=== PATIENT | male | born 1950 | race Caucasian/White ===

== ENCOUNTER 2021-03-13 12:23 | Inpatient (IN) | payer MEDICARE, OTHER ==
[~2021-03-13] VITALS: Ht 180.3 cm; Wt 105.9 kg
[2021-03-13 16:22] LABS: BASO # 0.1 x10^3/uL (0.0-0.2); BASO % 1 % (0-3); EOS % 0 % (0-3); HEMATOCRIT 36.8 % (39.0-53.0); LYMPH # 1.1 x10^3/uL (1.0-4.8); LYMPH % 8 % (24-48); MEAN CORPUSCULAR HEMOGLOBIN 30 pg (25-35); MEAN CORPUSCULAR HGB CONC 35 g/dL (31-37); MEAN CORPUSCULAR VOLUME 84 fL (79-100); MONO # 0.5 x10^3/uL (0.0-1.1); MONO % 3 % (0-9); NEUT # 11.6 x10^3/uL (1.8-7.7); NEUT % 87 % (31-73); PLATELET COUNT 179 x10^3/uL (140-400); RED BLOOD COUNT 4.41 x10^6/uL (4.30-5.70); RED CELL DISTRIBUTION WIDTH 13.2 % (11.5-14.5); WHITE BLOOD COUNT 13.3 x10^3/uL (4.0-11.0)
[2021-03-13 16:33] LABS: CALCIUM 8.5 mg/dL (8.5-10.1); CREATININE 1.7 mg/dL (0.7-1.3); GFR 40.2; POTASSIUM 3.5 mmol/L (3.5-5.1)
[2021-03-13 16:38] LABS: ALBUMIN 2.8 g/dL (3.4-5.0); ALBUMIN/GLOBULIN RATIO 0.7 (1.0-1.7); MAGNESIUM 2.1 mg/dL (1.8-2.4); TOTAL BILIRUBIN 0.8 mg/dL (0.2-1.0); TOTAL PROTEIN 6.8 g/dL (6.4-8.2)
[2021-03-13 17:00] LABS: % BANDS 19 % (0-9); % BASOS 1 % (0-3); % LYMPHS 5 % (24-48); % MONOS 3 % (0-10); % SEGS 72 % (35-66); PLT ESTIMATE ADEQUATE (ADEQUATE)
[2021-03-13 17:56] LABS: BASE EXCESS COOX 1 mmol/L (-3-3); HCO3 COOX 23 mmol/L (21-28); METHEMOGLOBIN 0.4 % (0.0-1.9); OXYHEMOGLOBIN 91.3 %; PCO2 COOX 27 mmHg (35-46); PO2 COOX 58 mmHg (65-108); SAT O2 COOX 92 % (92-99)
[2021-03-13] MEDS ORDERED: DEXAMETHASONE SOD PHOS 4 MG/ML VIAL IVP ONE (18:15)
[2021-03-13] MEDS ORDERED: IBUPROFEN 400 MG TABLET. PO ONE (18:45)
[2021-03-13] MEDS ORDERED: ACETAMINOPHEN 500 MG TABLET PO ONE (18:45)
--- NOTE | 2021-03-13 18:55 | RAD ---
Chest AP portable at 1802: Reason for examination: Patient under investigation for Covid. Short of breath. Heart size is upper normal. Mediastinum is unremarkable. Lung yeh show mild hazy opacities in the left upper and lower lung yeh and at the mid right lung field along the minor fissure and in the m edial right lung base. No pleural effusions or pneumothorax are seen. No acute bony abnormalities are present. IMPRESSION: Mild hazy opacities bilaterally. Cannot exclude atypical pneumonia. Electronically signed by: Lesley Bishop MD (03/13/2021 6:53 PM) RETA
--- NOTE | 2021-03-13 19:18 | ED.ADGEN ---
Past Medical History Additional Past Medical Histor: SLEEP APNEA WITH C-PAP USE Past Surgical History: Other Additional Past Surgical Histo: CARDIAC ABALTION Smoking Status: Never Smoker Alcohol Use: Rarely General Adult EDM: Chief Complaint: FEVER HPI: HPI: Patient is a 70 year old male who presents emergency with reports of feeling unwell with fevers, chills, decreased appetite, difficulty sleeping, diarrhea, cough, and congestion. Patient reports that his son tested positive for Covid about 2 weeks ago, his had it last week. Patient states he thinks that he has Covid now. He has not been immunized against the illness. Patient denies any nausea, or vomiting. He denies any blood in his stools, but states that today he did have a couple of stools that were black in color. He denies any abdominal pain, chest pain, palpitations, or wheezing. Patient denies any chest pain palpitations at this time, he states he does have a history of A. fib and high blood pressure. Patient also reports CPAP use when sleeping due to sleep apnea. He currently rates his discomfort a 5 out of 10 on the pain scale, he denies any alleviating factors. Review of Systems: Review of Systems: Complete ROS is negative unless otherwise noted in HPI. Current Medications: Current Medications Medications (Trade) Dose Ordered Sig/[facility] Start Time Stop Time Status Last Admin Dose Admin Acetaminophen (Tylenol) 1,000 mg 1X ONCE 03/13/21 18:45 03/13/21 18:46 DC 03/13/21 18:55 1,000 MG Dexamethasone Sodium Phosphate (Decadron) 6 mg 1X ONCE 03/13/21 18:15 03/13/21 18:45 DC 03/13/21 18:59 6 MG Ibuprofen (Motrin) 800 mg 1X ONCE 03/13/21 18:45 03/13/21 18:46 DC 03/13/21 18:55 800 MG Allergies: Allergies: Allergies Coded Allergies Type Severity Reaction Last Updated Verified amoxicillin Allergy Intermediate 03/13/21 Yes clavulanic acid Allergy Intermediate 03/13/21 Yes Physical Exam: PE: See Above Constitutional: Well developed, well nourished, no acute distress, non-toxic appearance. [] HENT: Normocephalic, atraumatic, bilateral external ears normal, oropharynx moist, no oral exudates, nose normal. [] Eyes: PERRLA, EOMI, conjunctiva normal, no discharge. [] Neck: Normal range of motion, no tenderness, supple, no stridor. [] Cardiovascular:Heart rate regular rhythm, no murmur [] Lungs & Thorax: Bilateral breath sounds clear to auscultation [] Abdomen: Bowel sounds normal, soft, no tenderness, no masses, no pulsatile masses. [] Skin: Warm, dry, no erythema, no rash. [] Back: No tenderness, no CVA tenderness. [] Extremities: No tenderness, no cyanosis, no clubbing, ROM intact, no edema. [] Neurologic: Alert and oriented X 3, normal motor function, normal sensory function, no focal deficits noted. [] Psychologic: Affect normal, judgement normal, mood normal. [] Current Patient Data: Labs: Laboratory Tests Test 03/13/21 14:21 03/13/21 15:49 03/13/21 16:16 SARS-CoV-2 Antigen (Rapid) Negative (NEGATIVE) O2 Saturation 92 % (92-99) Arterial Blood pH 7.53 (7.35-7.45) H Arterial Blood pCO2 at Patient Temp 27 mmHg (35-46) L Arterial Blood pO2 at Patient Temp 58 mmHg (65-108) L Arterial Blood HCO3 23 mmol/L (21-28) Arterial Blood Base Excess 1 mmol/L (-3-3) Oxyhemoglobin 91.3 % Methemoglobin 0.4 % (0.0-1.9) Carbon Monoxide, Quantitative 0.3 % (0.0-1.9) FiO2 21/ra White Blood Count 13.3 x10^3/uL (4.0-11.0) H Red Blood Count 4.41 x10^6/uL (4.30-5.70) Hemoglobin 13.0 g/dL (13.0-17.5) Hematocrit 36.8 % (39.0-53.0) L Mean Corpuscular Volume 84 fL (79-100) Mean Corpuscular Hemoglobin 30 pg (25-35) Mean Corpuscular Hemoglobin Concent 35 g/dL (31-37) Red Cell Distribution Width 13.2 % (11.5-14.5) Platelet Count 179 x10^3/uL (140-400) Neutrophils (%) (Auto) 87 % (31-73) H Lymphocytes (%) (Auto) 8 % (24-48) L Monocytes (%) (Auto) 3 % (0-9) Eosinophils (%) (Auto) 0 % (0-3) Basophils (%) (Auto) 1 % (0-3) Neutrophils # (Auto) 11.6 x10^3/uL (1.8-7.7) H Lymphocytes # (Auto) 1.1 x10^3/uL (1.0-4.8) Monocytes # (Auto) 0.5 x10^3/uL (0.0-1.1) Eosinophils # (Auto) 0.0 x10^3/uL (0.0-0.7) Basophils # (Auto) 0.1 x10^3/uL (0.0-0.2) Segmented Neutrophils % 72 % (35-66) H Band Neutrophils % 19 % (0-9) H Lymphocytes % 5 % (24-48) L Monocytes % 3 % (0-10) Basophils % 1 % (0-3) Dohle Bodies Few Platelet Estimate Adequate (ADEQUATE) Sodium Level 128 mmol/L (136-145) L Potassium Level 3.5 mmol/L (3.5-5.1) Chloride Level 95 mmol/L (98-107) L Carbon Dioxide Level 23 mmol/L (21-32) Anion Gap 10 (6-14) Blood Urea Nitrogen 27 mg/dL (8-26) H Creatinine 1.7 mg/dL (0.7-1.3) H Estimated GFR (Cockcroft-Gault) 40.2 BUN/Creatinine Ratio 16 (6-20) Glucose Level 134 mg/dL (70-99) H Calcium Level 8.5 mg/dL (8.5-10.1) Magnesium Level 2.1 mg/dL (1.8-2.4) Total Bilirubin 0.8 mg/dL (0.2-1.0) Aspartate Amino Transferase (AST) 53 U/L (15-37) H Alanine Aminotransferase (ALT) 44 U/L (16-63) Alkaline Phosphatase 52 U/L (46-116) Total Protein 6.8 g/dL (6.4-8.2) Albumin 2.8 g/dL (3.4-5.0) L Albumin/Globulin Ratio 0.7 (1.0-1.7) L Laboratory Tests 03/13/21 16:16 Laboratory Tests 03/13/21 16:16 Vital Signs: Vital Signs Date Time Temp Pulse Resp B/P (MAP) Pulse Ox O2 Delivery O2 Flow Rate FiO2 03/13/21 18:35 102.8 102.8 03/13/21 17:25 73 22 96/52 (67) 91 Room Air 03/13/21 16:25 2.0 EKG: EKG: [] Heart Score: C/O Chest Pain: No Radiology/Procedures: Radiology/Procedures: PROCEDURE: CHEST AP ONLY Chest AP portable at 1802: Reason for examination: Patient under investigation for Covid. Short of breath. Heart size is upper normal. Mediastinum is unremarkable. Lung yeh show mild hazy opacities in the left upper and lower lung yeh and at the mid right lung field along the minor fissure and in the medial right lung base. No pleural effusions or pneumothorax are seen. No acute bony abnormalities are present. IMPRESSION: Mild hazy opacities bilaterally. Cannot exclude atypical pneumonia. Electronically signed by: Lesley Bishop MD (03/13/2021 6:53 PM) TEGAN [] Course & Med Decision Making: Course & Med Decision Making Pertinent Labs and Imaging studies reviewed. (See chart for details) [id number]-spoke with Dr. Diaz who is the admitting physician, and care was assumed following discussion of patient. Will admit patient for PUI, respiratory failure with hypoxia, fever, acute kidney injury, and atypical pneumonia Patient's vital signs stable. patient appears ill, respirations even and unlabored. Patient will be admitted to the medical tele floor. Patient's case and plan of care also discussed with Dr. Xander Carpenter Disclaimer: Pauline Disclaimer: This electronic medical record was generated, in whole or in part, using a voice recognition dictation system. Departure Departure Impression: Primary Impression: Person under investigation for COVID-19 Additional Impressions: Respiratory failure with hypoxia Fever WILBERT (acute kidney injury) Atypical pneumonia Disposition: ADMITTED INPATIENT Admitting Physician: JULIENNE Patel) Condition: STABLE Referrals: PINA SAMANIEGO (PCP) Problem Qualifiers Additional Impressions: Respiratory failure with hypoxia Chronicity: acute Qualified Codes: J96.01 - Acute respiratory failure with hypoxia Fever Fever type: unspecified Qualified Codes: R50.9 - Fever, unspecified SYLVIA [employer] Mar 13, 2021 19:18
[2021-03-13] MEDS ORDERED: cefTRIAXone IV Push 1 GM VIAL. IVP ONE (19:45)
[2021-03-13] MEDS ORDERED: AZITHRMYCN 500MG IVPB FOR OMNI 250 ML IV ONE (19:45)
[2021-03-13 20:00] VITALS: BP 96/66
[2021-03-13] MEDS: IV NORMAL SALINE 1000ML BAG 1,000 ML IV SCH (21:01)
[2021-03-13 22:24] VITALS: BP 116/72
[2021-03-13] MEDS ORDERED: SOTA80TA48 PO (22:57)
[2021-03-13] MEDS ORDERED: HYDR12.575 PO (22:57)
[2021-03-13] MEDS ORDERED: LIPITOR80 MG PO (22:57)
[2021-03-13] MEDS ORDERED: LISI-130 PO (22:57)
[2021-03-13] MEDS ORDERED: RIVA20TA2 PO (22:57)
[2021-03-13] MEDS ORDERED: LORA10TA3 PO (22:57)
[2021-03-13] MEDS ORDERED: CHOL2400 MC (22:57)
[2021-03-13] MEDS ORDERED: MORP2CAR3 IV (23:02)
[2021-03-13] MEDS ORDERED: ONDA-84 PO (23:02)
[2021-03-14 03:00] VITALS: BP 105/64
[2021-03-14] MEDS: IV NORMAL SALINE 1000ML BAG 1,000 ML IV SCH ×4 (06:32→22:11)
[2021-03-14 07:00] VITALS: BP 119/64
--- NOTE | 2021-03-14 08:23 | PDOC1 ---
History and Physical Date of Admission Date of Admission DATE: 03/14/21 TIME: 08:23 Source Source: Chart review, Patient History of Present Illness History of Present Illness Mr. Paige is a 70 year old male admit for COVID pos symptops. he has felt unwell with fevers, chills, decreased appetite, difficulty sleeping, diarrhea, cough, and congestion. recent contact with pos COVID patients, his son has it, he is sure he has it, not been immunized against the illness. Patient denies any nausea, or vomit ing. He denies any blood in his stools, but states that today he did have a couple of stools that were black in color. He denies any abdominal pain, chest pain, palpitations, or wheezing. Patient denies any chest pain palpitations at this time, he states he does have a history of A. fib and high blood pressure. Patient also reports CPAP use when sleeping due to sleep apnea. He currently rates his discomfort a 5 out of 10 on the pain scale, he denies any alleviating factors. Past Medical History Cardiovascular: AFIB, HTN Pulmonary: No pertinent hx GI: No pertinent hx Past Surgical History Past Surgical History: No pertinent history Family History Family History: Diabetes, Heart Disease Social History Smoke: No ALCOHOL: none Current Problem List Problem List Problems Medical Problems: (1) Atypical pneumonia Status: Acute (2) Respiratory failure with hypoxia Status: Acute Current Medications Current Medications Current Medications Dexamethasone Sodium Phosphate (Decadron) 6 mg 1X ONCE IVP Last administered on 03/13/21at 18:59; Start 03/13/21 at 18:15; Stop 03/13/21 at 18:45; Status DC Acetaminophen (Tylenol) 1,000 mg 1X ONCE PO Last administered on 03/13/21at 18:55; Start 03/13/21 at 18:45; Stop 03/13/21 at 18:46; Status DC Ibuprofen (Motrin) 800 mg 1X ONCE PO Last administered on 03/13/21at 18:55; Start 03/13/21 at 18:45; Stop 03/13/21 at 18:46; Status DC Sodium Chloride 1,000 ml @ 125 mls/hr Q8H IV Last administered on 03/14/21at 06:32; Start 03/13/21 at 19:15; Stop 03/14/21 at 19:14 Ceftriaxone Sodium (Rocephin) 1 gm 1X ONCE IVP Last administered on 03/13/21at 22:28; Start 03/13/21 at 19:45; Stop 03/13/21 at 19:46; Status DC Azithromycin 250 ml @ 250 mls/hr 1X ONCE IV Last administered on 03/13/21at 21:00; Start 03/13/21 at 19:45; Stop 03/13/21 at 20:44; Status DC Hydrochlorothiazide (Microzide) 12.5 mg DAILY PO ; Start 03/14/21 at 09:00 Lisinopril (Prinivil) 40 mg DAILY PO ; Start 03/14/21 at 09:00 Sotalol HCl (Betapace) 80 mg BID PO ; Start 03/14/21 at 09:00 Atorvastatin Calcium (Lipitor) 80 mg DAILY PO ; Start 03/14/21 at 09:00 Vitamin D (Vitamin D3) 2,000 unit DAILY PO ; Start 03/14/21 at 09:00 Cetirizine HCl (ZyrTEC) 10 mg DAILY PO ; Start 03/14/21 at 09:00 Rivaroxaban (Xarelto) 20 mg DAILY PO ; Start 03/14/21 at 09:00 Acetaminophen (Tylenol) 1,000 mg PRN Q6HRS PRN PO FEVER > 100.5'F; Start 03/13/21 at 23:15 Active Scripts Active Reported Ondansetron Hcl 4 Mg Tablet 1 Tab PO PRN Q6HRS Morphine Sulfate 2 Mg/1 Ml Cartridge 2 Mg IV PRN Q4HRS PRN Sotalol (Sotalol Hcl) 80 Mg Tablet 1 Tab PO BID Vitamin D3 (Cholecalciferol (Vitamin D3)) 2,400 Unit/1 Ml Liquid 2,400 Unit MC [id number] Xarelto (Rivaroxaban) 20 Mg Tablet 1 Tab PO DAILY 30 Days with food Lipitor (Atorvastatin Calcium) 80 Mg Tablet 1 Tab PO DAILY Hydrochlorothiazide Capsule (Hydrochlorothiazide) 12.5 Mg Capsule 12.5 Mg PO DAILY Loratadine 10 Mg Tablet 1 Tab PO DAILY Lisinopril 40 Mg Tablet 1 Tab PO DAILY Allergies Allergies: Coded Allergies: amoxicillin (Verified Allergy, Intermediate, 03/13/21) clavulanic acid (Verified Allergy, Intermediate, 03/13/21) ROS General: YES: Chills, Fatigue, Malaise, Other PSYCHOLOGICAL ROS: YES: Sleep disturbances; No: Anxiety, Behavioral Disorder, Concentration difficultie, Decreased libido, Depression, Disorientation, Hallucinations, Hostility, Irritablity, Memory difficulties, Mood Swings, Obsessive thoughts, Physical abuse, Sexual abuse, Suicidal ideation, Other Eyes: No Blurry vision, No Decreased vision, No Double vision, No Dry eyes, No Excessive tearing, No Eye Pain, No Itchy Eyes, No Loss of vision, No Photophobia, No Scotomata, No Uses contacts, No Uses glasses, No Other HEENT: No: Heacaches, Visual Changes, Hearing change, Nasal congestion, Nasal discharge, Oral lesions, Sinus pain, Sore Throat, Epistaxis, Sneezing, Snoring, Tinnitus, Vertigo, Vocal changes, Other Respiratory: No: Cough, Hemoptysis, Orthopnea, Pleuritic Pain, Shortness of breath, SOB with excertion, Sputum Changes, Stridor, Tachypnea, Wheezing, Other Cardiovascular: No Chest Pain, No Palpitations, No Orthopnea, No Paroxysmal Noc. Dyspnea, No Edema, No Lt Headedness, No Other Gastrointestinal: Yes Nausea, Yes Vomiting, Yes Abdominal Pain, Yes Diarrhea Genitourinary: No Dysuria, No Frequency, No Incontinence, No Hematuria, No Re tention, No Discharge, No Urgency, No Pain, No Flank Pain, No Other, No , No , No , No , No , No , No Musculoskeletal: Yes Joint Stiffness; No Gait Disturbance, No Joint Pain, No Joint Swelling, No Muscle Pain, No Muscular Weakness, No Pain In:, No Swelling In:, No Other Neurological: No Behavorial Changes, No Bowel/Bladder ControlChng, No Confusion, No Dizziness, No Gait Disturbance, No Headaches, No Impaired Coord/balance, No Memory Loss, No Numbness/Tingling, No Seizures, No Speech Problems, No Tremors, No Visual Changes, No Weakness, No Other Skin: Yes Dry Skin; No Eczema, No Hair Changes, No Lumps, No Mole Changes, No Mottling, No Nail Changes, No Pruritus, No Rash, No Skin Lesion Changes, No Other, No Acne Physical Exam General: Alert, Oriented X3, Cooperative, mild distress, Other (confused more than baseline) HEENT: PERRLA, EOMI, Mucous membr. moist/pink Lungs: Clear to auscultation, Normal air movement Heart: S1S2, no murmurs Extremities: No clubbing, Normal pulses Skin: No rashes, No breakdown Neuro: Normal gait, Normal speech, Cranial nerves 3-12 NL Psych/Mental Status: Mood NL Vitals Vitals Vital Signs Date Time Temp Pulse Resp B/P (MAP) Pulse Ox O2 Delivery O2 Flow Rate FiO2 03/14/21 03:00 97.9 62 18 105/64 (78) 94 Nasal Cannula 2.0 97.9 Labs Labs Laboratory Tests Test 03/13/21 14:21 03/13/21 15:49 03/13/21 16:16 SARS-CoV-2 Antigen (Rapid) Negative (NEGATIVE) O2 Saturation 92 % (92-99) Arterial Blood pH 7.53 (7.35-7.45) Arterial Blood pCO2 at Patient Temp 27 mmHg (35-46) Arterial Blood pO2 at Patient Temp 58 mmHg (65-108) Arterial Blood HCO3 23 mmol/L (21-28) Arterial Blood Base Excess 1 mmol/L (-3-3) Oxyhemoglobin 91.3 % Methemoglobin 0.4 % (0.0-1.9) Carbon Monoxide, Quantitative 0.3 % (0.0-1.9) FiO2 21/ra White Blood Count 13.3 x10^3/uL (4.0-11.0) Red Blood Count 4.41 x10^6/uL (4.30-5.70) Hemoglobin 13.0 g/dL (13.0-17.5) Hematocrit 36.8 % (39.0-53.0) Mean Corpuscular Volume 84 fL (79-100) Mean Corpuscular Hemoglobin 30 pg (25-35) Mean Corpuscular Hemoglobin Concent 35 g/dL (31-37) Red Cell Distribution Width 13.2 % (11.5-14.5) Platelet Count 179 x10^3/uL (140-400) Neutrophils (%) (Auto) 87 % (31-73) Lymphocytes (%) (Auto) 8 % (24-48) Monocytes (%) (Auto) 3 % (0-9) Eosinophils (%) (Auto) 0 % (0-3) Basophils (%) (Auto) 1 % (0-3) Neutrophils # (Auto) 11.6 x10^3/uL (1.8-7.7) Lymphocytes # (Auto) 1.1 x10^3/uL (1.0-4.8) Monocytes # (Auto) 0.5 x10^3/uL (0.0-1.1) Eosinophils # (Auto) 0.0 x10^3/uL (0.0-0.7) Basophils # (Auto) 0.1 x10^3/uL (0.0-0.2) Segmented Neutrophils % 72 % (35-66) Band Neutrophils % 19 % (0-9) Lymphocytes % 5 % (24-48) Monocytes % 3 % (0-10) Basophils % 1 % (0-3) Dohle Bodies Few Platelet Estimate Adequate (ADEQUATE) Sodium Level 128 mmol/L (136-145) Potassium Level 3.5 mmol/L (3.5-5.1) Chloride Level 95 mmol/L (98-107) Carbon Dioxide Level 23 mmol/L (21-32) Anion Gap 10 (6-14) Blood Urea Nitrogen 27 mg/dL (8-26) Creatinine 1.7 mg/dL (0.7-1.3) Estimated GFR (Cockcroft-Gault) 40.2 BUN/Creatinine Ratio 16 (6-20) Glucose Level 134 mg/dL (70-99) Calcium Level 8.5 mg/dL (8.5-10.1) Magnesium Level 2.1 mg/dL (1.8-2.4) Total Bilirubin 0.8 mg/dL (0.2-1.0) Aspartate Amino Transf (AST/SGOT) 53 U/L (15-37) Alanine Aminotransferase (ALT/SGPT) 44 U/L (16-63) Alkaline Phosphatase 52 U/L (46-116) Total Protein 6.8 g/dL (6.4-8.2) Albumin 2.8 g/dL (3.4-5.0) Albumin/Globulin Ratio 0.7 (1.0-1.7) Laboratory Tests Test 03/13/21 14:21 03/13/21 15:49 03/13/21 16:16 SARS-CoV-2 Antigen (Rapid) Negative (NEGATIVE) O2 Saturation 92 % (92-99) Arterial Blood pH 7.53 (7.35-7.45) Arterial Blood pCO2 at Patient Temp 27 mmHg (35-46) Arterial Blood pO2 at Patient Temp 58 mmHg (65-108) Arterial Blood HCO3 23 mmol/L (21-28) Arterial Blood Base Excess 1 mmol/L (-3-3) Oxyhemoglobin 91.3 % Methemoglobin 0.4 % (0.0-1.9) Carbon Monoxide, Quantitative 0.3 % (0.0-1.9) FiO2 21/ra White Blood Count 13.3 x10^3/uL (4.0-11.0) Red Blood Count 4.41 x10^6/uL (4.30-5.70) Hemoglobin 13.0 g/dL (13.0-17.5) Hematocrit 36.8 % (39.0-53.0) Mean Corpuscular Volume 84 fL (79-100) Mean Corpuscular Hemoglobin 30 pg (25-35) Mean Corpuscular Hemoglobin Concent 35 g/dL (31-37) Red Cell Distribution Width 13.2 % (11.5-14.5) Platelet Count 179 x10^3/uL (140-400) Neutrophils (%) (Auto) 87 % (31-73) Lymphocytes (%) (Auto) 8 % (24-48) Monocytes (%) (Auto) 3 % (0-9) Eosinophils (%) (Auto) 0 % (0-3) Basophils (%) (Auto) 1 % (0-3) Neutrophils # (Auto) 11.6 x10^3/uL (1.8-7.7) Lymphocytes # (Auto) 1.1 x10^3/uL (1.0-4.8) Monocytes # (Auto) 0.5 x10^3/uL (0.0-1.1) Eosinophils # (Auto) 0.0 x10^3/uL (0.0-0.7) Basophils # (Auto) 0.1 x10^3/uL (0.0-0.2) Segmented Neutrophils % 72 % (35-66) Band Neutrophils % 19 % (0-9) Lymphocytes % 5 % (24-48) Monocytes % 3 % (0-10) Basophils % 1 % (0-3) Dohle Bodies Few Platelet Estimate Adequate (ADEQUATE) Sodium Level 128 mmol/L (136-145) Potassium Level 3.5 mmol/L (3.5-5.1) Chloride Level 95 mmol/L (98-107) Carbon Dioxide Level 23 mmol/L (21-32) Anion Gap 10 (6-14) Blood Urea Nitrogen 27 mg/dL (8-26) Creatinine 1.7 mg/dL (0.7-1.3) Estimated GFR (Cockcroft-Gault) 40.2 BUN/Creatinine Ratio 16 (6-20) Glucose Level 134 mg/dL (70-99) Calcium Level 8.5 mg/dL (8.5-10.1) Magnesium Level 2.1 mg/dL (1.8-2.4) Total Bilirubin 0.8 mg/dL (0.2-1.0) Aspartate Amino Transf (AST/SGOT) 53 U/L (15-37) Alanine Aminotransferase (ALT/SGPT) 44 U/L (16-63) Alkaline Phosphatase 52 U/L (46-116) Total Protein 6.8 g/dL (6.4-8.2) Albumin 2.8 g/dL (3.4-5.0) Albumin/Globulin Ratio 0.7 (1.0-1.7) VTE Prophylaxis Ordered VTE Prophylaxis Devices: No VTE Pharmacological Prophylaxi: Yes Assessment/Plan Assessment/Plan acute infectious enteritis SIRS, Sepsis, diarrhea dehydration vasomotor nephropathy, hyponatremia afibm, sotalol, xarelto cont the IV fluid, supportive care, repeat labs, abx given, couldnot exclude atypical pna in ER, Justifications for Admission Other Justification PRINCESS BAIRD MD Mar 14, 2021 08:23
[2021-03-14] MEDS: LISINOPRIL 20 MG TABLET PO SCH (10:20)
[2021-03-14 10:21] LABS: CALCIUM 8.4 mg/dL (8.5-10.1); CREATININE 1.4 mg/dL (0.7-1.3); GFR 50.2; POTASSIUM 3.7 mmol/L (3.5-5.1)
[2021-03-14] MEDS: RIVAROXABAN 10 MG TABLET. PO SCH (10:21)
[2021-03-14] MEDS: SOTALOL 80 MG TABLET. PO SCH ×2 (10:21→22:04)
[2021-03-14] MEDS: CETIRIZINE HCL 10 MG TABLET. PO SCH (10:21)
[2021-03-14] MEDS: CHOLECALCIFEROL (VITAMIN D3) 1,000 UNIT TABLET PO SCH (10:22)
[2021-03-14] MEDS: ATORVASTATIN CALCIUM 40 MG TABLET. PO SCH (10:22)
[2021-03-14] MEDS: hydroCHLOROthiazide 12.5 MG CAPSULE PO SCH (10:22)
[2021-03-14] MEDS: AZITHROMYCIN 250 MG TABLET. PO SCH (10:25)
[2021-03-14 11:00] VITALS: BP 112/71
--- NOTE | 2021-03-14 11:05 | NUR ---
SW following. Discussed with RN, pt from home with , 2L (does not use oxygen at home), regular diet. COVID-19 positive. RN advised no SW needs at this time. SW will continue to follow.
[2021-03-14] MEDS ORDERED: ANTI-COAG MONITOR BY PHARMACY. MC PRN (12:30)
[2021-03-14] MEDS: ACETAMINOPHEN 500 MG TABLET PO PRN ×2 (14:26→22:04)
[2021-03-14 15:00] VITALS: BP 108/49
[2021-03-14 16:54] LABS: BILIRUBIN,URINE NEGATIVE (NEG); CLARITY,URINE CLEAR; COLOR,URINE YELLOW; NITRITE,URINE NEGATIVE (NEG); PH,URINE 5.5 (<5.0-8.0); PROTEIN,URINE 100 mg/dL (NEG-TRACE)
[2021-03-14 17:06] LABS: GRANULAR CASTS,URINE FEW /HPF; HYALINE CASTS, URINE OCCASIONAL /HPF
[2021-03-14 17:07] LABS: BACTERIA,URINE 0 /HPF (0-FEW); RBC,URINE OCC /HPF (0-2)
[2021-03-14 19:00] VITALS: BP 97/51
[2021-03-14 23:00] VITALS: BP 110/50
[2021-03-15 03:00] VITALS: BP 116/67
[2021-03-15] MEDS: guaiFENesin DM 200MG/20MG 10 ML SYRUP PO PRN ×2 (03:42→21:27)
[2021-03-15] MEDS: MORPHINE SULFATE 2 MG/ML INJ. IVP PRN ×2 (03:43→21:28)
[2021-03-15] MEDS: IV NORMAL SALINE 1000ML BAG 1,000 ML IV SCH ×3 (03:43→21:27)
[2021-03-15 07:05] LABS: BASO % 0 % (0-3); EOS % 0 % (0-3); HEMATOCRIT 36.2 % (39.0-53.0); HEMOGLOBIN 12.5 g/dL (13.0-17.5); LYMPH # 1.1 x10^3/uL (1.0-4.8); LYMPH % 7 % (24-48); MEAN CORPUSCULAR HEMOGLOBIN 30 pg (25-35); MEAN CORPUSCULAR HGB CONC 35 g/dL (31-37); MEAN CORPUSCULAR VOLUME 86 fL (79-100); MONO # 0.7 x10^3/uL (0.0-1.1); MONO % 4 % (0-9); NEUT % 89 % (31-73); PLATELET COUNT 245 x10^3/uL (140-400); RED BLOOD COUNT 4.23 x10^6/uL (4.30-5.70); RED CELL DISTRIBUTION WIDTH 13.6 % (11.5-14.5); WHITE BLOOD COUNT 16.9 x10^3/uL (4.0-11.0)
[2021-03-15 07:30] VITALS: BP 111/41
[2021-03-15 07:34] LABS: ALBUMIN 2.4 g/dL (3.4-5.0); ALBUMIN/GLOBULIN RATIO 0.6 (1.0-1.7); CALCIUM 8.3 mg/dL (8.5-10.1); CREATININE 1.1 mg/dL (0.7-1.3); GFR 66.4; POTASSIUM 3.6 mmol/L (3.5-5.1); TOTAL BILIRUBIN 0.6 mg/dL (0.2-1.0); TOTAL PROTEIN 6.5 g/dL (6.4-8.2)
[2021-03-15] MEDS: ACETAMINOPHEN 500 MG TABLET PO PRN (09:03)
[2021-03-15] MEDS: SOTALOL 80 MG TABLET. PO SCH ×2 (09:03→21:17)
[2021-03-15] MEDS: RIVAROXABAN 10 MG TABLET. PO SCH (09:03)
[2021-03-15] MEDS: CHOLECALCIFEROL (VITAMIN D3) 1,000 UNIT TABLET PO SCH (09:03)
[2021-03-15] MEDS: LISINOPRIL 20 MG TABLET PO SCH (09:04)
[2021-03-15] MEDS: hydroCHLOROthiazide 12.5 MG CAPSULE PO SCH (09:04)
[2021-03-15] MEDS: CETIRIZINE HCL 10 MG TABLET. PO SCH (09:04)
[2021-03-15] MEDS: ATORVASTATIN CALCIUM 40 MG TABLET. PO SCH (09:04)
[2021-03-15] MEDS: AZITHROMYCIN 250 MG TABLET. PO SCH (09:04)
[2021-03-15 11:00] VITALS: BP 114/62
--- NOTE | 2021-03-15 14:57 | PDOC ---
[employer] PROGRESS NOTE Date of Service DOS: DATE: 03/15/21 TIME: 14:55 Chief Complaint Chief Complaint COVID 19 pos with hypoxia acute infectious enteritis, viral SIRS, Sepsis, diarrhea dehydration vasomotor nephropathy, better hyponatremia, dry afib with chronic diastolic CHF, on sotalol, xarelto moderate malnutrition was POA History of Present Illness History of Present Illness very weak today, that is maybe worse than yesterday now on oxygen, has now tested pos for COVID, will start package, including remdesivir, steroids, zinc, vit c his diarrhea is better labs better, Vitals/I&O Vitals/I&O: Vital Signs Date Time Temp Pulse Resp B/P (MAP) Pulse Ox O2 Delivery O2 Flow Rate FiO2 03/15/21 11:00 98.5 60 24 114/62 (79) 92 Nasal Cannula 2.0 98.5 I & O 03/14/21 03/14/21 03/15/21 15:00 23:00 07:00 Intake Total 600 ml 0 ml Output Total 400 ml 600 ml Balance -400 ml 0 ml 0 ml Physical Exam General: Alert, Oriented X3, Cooperative, mild distress, Other (confused more than baseline) Heart: No murmurs Lungs: Other (rales, limtied vol, ) Abdomen: Soft Extremities: No clubbing, Normal pulses Skin: No rashes, No breakdown Labs Labs: Laboratory Tests Test 03/14/21 15:47 03/15/21 05:45 Urine Collection Type Unknown Urine Color Yellow Urine Clarity Clear Urine pH 5.5 (<5.0-8.0) Urine Specific [place] 1.020 (1.000-1.030) Urine Protein 100 mg/dL (NEG-TRACE) Urine Glucose (UA) Negative mg/dL (NEG) Urine Ketones (Stick) Negative mg/dL (NEG) Urine Blood Small (NEG) Urine Nitrite Negative (NEG) Urine Bilirubin Negative (NEG) Urine Urobilinogen Dipstick 1.0 mg/dL (0.2 mg/dL) Urine Leukocyte Esterase Negative (NEG) Urine RBC Occ /HPF (0-2) Urine WBC 1-4 /HPF (0-4) Urine Bacteria 0 /HPF (0-FEW) Urine Hyaline Casts Occasional /HPF Urine Granular Casts Few /HPF Urine Mucus Marked /LPF White Blood Count 16.9 x10^3/uL (4.0-11.0) Red Blood Count 4.23 x10^6/uL (4.30-5.70) Hemoglobin 12.5 g/dL (13.0-17.5) Hematocrit 36.2 % (39.0-53.0) Mean Corpuscular Volume 86 fL (79-100) Mean Corpuscular Hemoglobin 30 pg (25-35) Mean Corpuscular Hemoglobin Concent 35 g/dL (31-37) Red Cell Distribution Width 13.6 % (11.5-14.5) Platelet Count 245 x10^3/uL (140-400) Neutrophils (%) (Auto) 89 % (31-73) Lymphocytes (%) (Auto) 7 % (24-48) Monocytes (%) (Auto) 4 % (0-9) Eosinophils (%) (Auto) 0 % (0-3) Basophils (%) (Auto) 0 % (0-3) Neutrophils # (Auto) 15.0 x10^3/uL (1.8-7.7) Lymphocytes # (Auto) 1.1 x10^3/uL (1.0-4.8) Monocytes # (Auto) 0.7 x10^3/uL (0.0-1.1) Eosinophils # (Auto) 0.0 x10^3/uL (0.0-0.7) Basophils # (Auto) 0.0 x10^3/uL (0.0-0.2) Sodium Level 134 mmol/L (136-145) Potassium Level 3.6 mmol/L (3.5-5.1) Chloride Level 98 mmol/L (98-107) Carbon Dioxide Level 27 mmol/L (21-32) Anion Gap 9 (6-14) Blood Urea Nitrogen 24 mg/dL (8-26) Creatinine 1.1 mg/dL (0.7-1.3) Estimated GFR (Cockcroft-Gault) 66.4 BUN/Creatinine Ratio 22 (6-20) Glucose Level 129 mg/dL (70-99) Calcium Level 8.3 mg/dL (8.5-10.1) Total Bilirubin 0.6 mg/dL (0.2-1.0) Aspartate Amino Transf (AST/SGOT) 64 U/L (15-37) Alanine Aminotransferase (ALT/SGPT) 56 U/L (16-63) Alkaline Phosphatase 98 U/L (46-116) Total Protein 6.5 g/dL (6.4-8.2) Albumin 2.4 g/dL (3.4-5.0) Albumin/Globulin Ratio 0.6 (1.0-1.7) Review of Systems Review of Systems: weak abd pain short of breath Assessment and Plan Assessmemt and Plan Problems Medical Problems: (1) Atypical pneumonia Status: Acute (2) Respiratory failure with hypoxia Status: Acute Comment Review of Relevant I have reviewed the following items janice (where applicable) has been applied. Medications: Current Medications Medications (Trade) Dose Ordered Sig/Stone Route PRN Reason Start Time Stop Time Status Last Admin Dose Admin Guaifenesin (Robitussin Dm) 10 ml PRN Q6HRS PRN PO COUGH 03/15/21 03:30 03/15/21 03:42 Morphine Sulfate (Morphine Sulfate) 2 mg PRN Q2HR PRN IVP SEVERE PAIN 7-10 03/15/21 03:45 03/15/21 03:43 Justifications for Admission Other Justification PRINCESS BAIRD MD Mar 15, 2021 14:56
[2021-03-15 15:00] VITALS: BP 111/60
[2021-03-15] MEDS ORDERED: REMDESIVIR LOAD in IV NORMAL SALINE 250ML TV IV ONE (16:00)
[2021-03-15] MEDS: ASCORBIC ACID 500 MG TABLET PO SCH (16:24)
[2021-03-15] MEDS: ZINC SULFATE 220 MG CAPSULE. PO SCH (16:24)
[2021-03-15] MEDS: DEXAMETHASONE SOD PHOS 4 MG/ML VIAL IVP SCH (16:25)
[2021-03-15 19:00] VITALS: BP 125/67
[2021-03-15] MEDS: LACTOBACILLUS RHAMNOSUS GG 1 CAPSULE. PO SCH (21:17)
[2021-03-15 23:00] VITALS: BP 128/76
[2021-03-16 03:00] VITALS: BP 137/77
[2021-03-16 07:00] VITALS: BP 138/83
[2021-03-16] MEDS: IV NORMAL SALINE 1000ML BAG 1,000 ML IV SCH (07:51)
[2021-03-16 11:00] VITALS: BP 138/83
[2021-03-16] MEDS: RIVAROXABAN 10 MG TABLET. PO SCH (11:10)
[2021-03-16] MEDS: DEXAMETHASONE SOD PHOS 4 MG/ML VIAL IVP SCH (11:10)
[2021-03-16] MEDS: AZITHROMYCIN 250 MG TABLET. PO SCH (11:11)
[2021-03-16] MEDS: hydroCHLOROthiazide 12.5 MG CAPSULE PO SCH (11:11)
[2021-03-16] MEDS: ASCORBIC ACID 500 MG TABLET PO SCH (11:11)
[2021-03-16] MEDS: LISINOPRIL 20 MG TABLET PO SCH (11:11)
[2021-03-16] MEDS: ATORVASTATIN CALCIUM 40 MG TABLET. PO SCH (11:11)
[2021-03-16] MEDS: CETIRIZINE HCL 10 MG TABLET. PO SCH (11:15)
[2021-03-16] MEDS: CHOLECALCIFEROL (VITAMIN D3) 1,000 UNIT TABLET PO SCH (11:15)
[2021-03-16] MEDS: LACTOBACILLUS RHAMNOSUS GG 1 CAPSULE. PO SCH ×2 (11:15→20:39)
[2021-03-16] MEDS: ZINC SULFATE 220 MG CAPSULE. PO SCH (11:15)
[2021-03-16] MEDS: SOTALOL 80 MG TABLET. PO SCH ×2 (11:16→20:39)
[2021-03-16 15:00] VITALS: BP 124/77
--- NOTE | 2021-03-16 15:48 | PDOC ---
[facility] [facility] PROGRESS NOTE Date of Service DOS: DATE: 03/16/21 TIME: 15:47 Chief Complaint Chief Complaint COVID 19 pos with hypoxia acute infectious enteritis, viral SIRS, Sepsis, diarrhea dehydration vasomotor nephropathy, better hyponatremia, dry afib with chronic diastolic CHF, on sotalol, xarelto moderate malnutrition was POA History of Present Illness History of Present Illness still weak today, up to chair Still on oxygen, pos for COVID, day2 of remdesivir, steroid, steroids, zinc, vit c his diarrhea is better labs better, cont current Vitals/I&O Vitals/I&O: Vital Signs Date Time Temp Pulse Resp B/P (MAP) Pulse Ox O2 Delivery O2 Flow Rate FiO2 03/16/21 11:16 64 138/83 03/16/21 11:00 98.4 18 94 Nasal Cannula 2.0 98.4 I & O 03/15/21 03/15/21 03/16/21 15:00 23:00 07:00 Intake Total 320 ml 1200 ml Output Total 301 ml 400 ml Balance 320 ml 899 ml -400 ml Physical Exam General: Alert, Oriented X3, Cooperative, mild distress, Other (confused more than baseline) Heart: No murmurs Lungs: Other (rales, limtied vol, ) Abdomen: Soft Extremities: No clubbing, Normal pulses Skin: No rashes, No breakdown Review of Systems Review of Systems: cough, dyspnea, weaknes,s Assessment and Plan Assessmemt and Plan Problems Medical Problems: (1) Atypical pneumonia Status: Acute (2) Respiratory failure with hypoxia Status: Acute Comment Review of Relevant I have reviewed the following items janice (where applicable) has been applied. Medications: Current Medications Medications (Trade) Dose Ordered Sig/Stone Route PRN Reason Start Time Stop Time Status Last Admin Dose Admin Lactobacillus Rhamnosus (Culturelle) 1 cap BID PO 03/15/21 21:00 03/16/21 11:15 Dexamethasone Sodium Phosphate (Decadron) 6 mg DAILY IVP 03/15/21 16:00 03/16/21 11:10 Remdesivir 200 mg/ Sodium Chloride 210 ml @ 210 mls/hr 1X ONCE IV 03/15/21 16:00 03/15/21 16:59 DC 03/15/21 16:25 Zinc Sulfate (Orazinc) 220 mg DAILY PO 03/15/21 16:00 03/16/21 11:15 Ascorbic Acid (Vitamin C) 500 mg DAILY PO 03/15/21 16:00 03/16/21 11:11 Justifications for Admission Other Justification PRINCESS BAIRD MD Mar 16, 2021 15:48
[2021-03-16] MEDS: REMDESIVIR 100mg in NORMAL SALINE 250ML X 4 DAYS IV SCH (16:00)
[2021-03-16 19:50] VITALS: BP 129/71
[2021-03-16] MEDS: guaiFENesin DM 200MG/20MG 10 ML SYRUP PO PRN (20:40)
[2021-03-16] MEDS: MORPHINE SULFATE 2 MG/ML INJ. IVP PRN (21:57)
[2021-03-16 23:34] VITALS: BP 114/50
[2021-03-17] MEDS: IV NORMAL SALINE 1000ML BAG 1,000 ML IV SCH ×4 (00:08→21:06)
[2021-03-17 03:14] VITALS: BP 130/68
[2021-03-17 06:33] LABS: BASO % 0 % (0-3); EOS % 0 % (0-3); HEMATOCRIT 33.4 % (39.0-53.0); HEMOGLOBIN 11.6 g/dL (13.0-17.5); LYMPH # 1.4 x10^3/uL (1.0-4.8); LYMPH % 14 % (24-48); MEAN CORPUSCULAR HEMOGLOBIN 30 pg (25-35); MEAN CORPUSCULAR HGB CONC 35 g/dL (31-37); MEAN CORPUSCULAR VOLUME 86 fL (79-100); MONO # 1.1 x10^3/uL (0.0-1.1); MONO % 11 % (0-9); NEUT # 7.2 x10^3/uL (1.8-7.7); NEUT % 74 % (31-73); PLATELET COUNT 381 x10^3/uL (140-400); WHITE BLOOD COUNT 9.8 x10^3/uL (4.0-11.0)
[2021-03-17 06:51] LABS: ALBUMIN 2.1 g/dL (3.4-5.0); ALBUMIN/GLOBULIN RATIO 0.5 (1.0-1.7); CALCIUM 8.3 mg/dL (8.5-10.1); GFR 74.1; POTASSIUM 3.8 mmol/L (3.5-5.1); TOTAL BILIRUBIN 0.5 mg/dL (0.2-1.0)
[2021-03-17 07:00] VITALS: BP 130/69
--- NOTE | 2021-03-17 09:22 | PDOC ---
PULMONARY PROGRESS NOTES DATE: 03/17/21 TIME: 09:21 Vitals Vital Signs Date Time Temp Pulse Resp B/P (MAP) Pulse Ox O2 Delivery O2 Flow Rate FiO2 03/17/21 07:00 60 20 130/69 (89) 95 Nasal Cannula 2.0 03/17/21 03:14 98.0 98.0 Lungs: Other (rales, limtied vol, ) Labs Laboratory Tests Test 03/17/21 05:45 White Blood Count 9.8 x10^3/uL (4.0-11.0) Red Blood Count 3.90 x10^6/uL (4.30-5.70) Hemoglobin 11.6 g/dL (13.0-17.5) Hematocrit 33.4 % (39.0-53.0) Mean Corpuscular Volume 86 fL (79-100) Mean Corpuscular Hemoglobin 30 pg (25-35) Mean Corpuscular Hemoglobin Concent 35 g/dL (31-37) Red Cell Distribution Width 14.0 % (11.5-14.5) Platelet Count 381 x10^3/uL (140-400) Neutrophils (%) (Auto) 74 % (31-73) Lymphocytes (%) (Auto) 14 % (24-48) Monocytes (%) (Auto) 11 % (0-9) Eosinophils (%) (Auto) 0 % (0-3) Basophils (%) (Auto) 0 % (0-3) Neutrophils # (Auto) 7.2 x10^3/uL (1.8-7.7) Lymphocytes # (Auto) 1.4 x10^3/uL (1.0-4.8) Monocytes # (Auto) 1.1 x10^3/uL (0.0-1.1) Eosinophils # (Auto) 0.0 x10^3/uL (0.0-0.7) Basophils # (Auto) 0.0 x10^3/uL (0.0-0.2) Sodium Level 138 mmol/L (136-145) Potassium Level 3.8 mmol/L (3.5-5.1) Chloride Level 103 mmol/L (98-107) Carbon Dioxide Level 28 mmol/L (21-32) Anion Gap 7 (6-14) Blood Urea Nitrogen 24 mg/dL (8-26) Creatinine 1.0 mg/dL (0.7-1.3) Estimated GFR (Cockcroft-Gault) 74.1 BUN/Creatinine Ratio 24 (6-20) Glucose Level 151 mg/dL (70-99) Calcium Level 8.3 mg/dL (8.5-10.1) Total Bilirubin 0.5 mg/dL (0.2-1.0) Aspartate Amino Transf (AST/SGOT) 82 U/L (15-37) Alanine Aminotransferase (ALT/SGPT) 100 U/L (16-63) Alkaline Phosphatase 64 U/L (46-116) Total Protein 6.0 g/dL (6.4-8.2) Albumin 2.1 g/dL (3.4-5.0) Albumin/Globulin Ratio 0.5 (1.0-1.7) Laboratory Tests Test 03/17/21 05:45 White Blood Count 9.8 x10^3/uL (4.0-11.0) Red Blood Count 3.90 x10^6/uL (4.30-5.70) Hemoglobin 11.6 g/dL (13.0-17.5) Hematocrit 33.4 % (39.0-53.0) Mean Corpuscular Volume 86 fL (79-100) Mean Corpuscular Hemoglobin 30 pg (25-35) Mean Corpuscular Hemoglobin Concent 35 g/dL (31-37) Red Cell Distribution Width 14.0 % (11.5-14.5) Platelet Count 381 x10^3/uL (140-400) Neutrophils (%) (Auto) 74 % (31-73) Lymphocytes (%) (Auto) 14 % (24-48) Monocytes (%) (Auto) 11 % (0-9) Eosinophils (%) (Auto) 0 % (0-3) Basophils (%) (Auto) 0 % (0-3) Neutrophils # (Auto) 7.2 x10^3/uL (1.8-7.7) Lymphocytes # (Auto) 1.4 x10^3/uL (1.0-4.8) Monocytes # (Auto) 1.1 x10^3/uL (0.0-1.1) Eosinophils # (Auto) 0.0 x10^3/uL (0.0-0.7) Basophils # (Auto) 0.0 x10^3/uL (0.0-0.2) Sodium Level 138 mmol/L (136-145) Potassium Level 3.8 mmol/L (3.5-5.1) Chloride Level 103 mmol/L (98-107) Carbon Dioxide Level 28 mmol/L (21-32) Anion Gap 7 (6-14) Blood Urea Nitrogen 24 mg/dL (8-26) Creatinine 1.0 mg/dL (0.7-1.3) Estimated GFR (Cockcroft-Gault) 74.1 BUN/Creatinine Ratio 24 (6-20) Glucose Level 151 mg/dL (70-99) Calcium Level 8.3 mg/dL (8.5-10.1) Total Bilirubin 0.5 mg/dL (0.2-1.0) Aspartate Amino Transf (AST/SGOT) 82 U/L (15-37) Alanine Aminotransferase (ALT/SGPT) 100 U/L (16-63) Alkaline Phosphatase 64 U/L (46-116) Total Protein 6.0 g/dL (6.4-8.2) Albumin 2.1 g/dL (3.4-5.0) Albumin/Globulin Ratio 0.5 (1.0-1.7) Medications Active Scripts Medications Dose Route/Sig Max Daily Dose Days Date Category Dose Instructions Ondansetron Hcl 4 Mg Tablet 1 Tab PO PRN Q6HRS 03/13/21 Reported Morphine Sulfate 2 Mg/1 Ml Cartridge 2 Mg IV PRN Q4HRS PRN 03/13/21 Reported Sotalol (Sotalol Hcl) 80 Mg Tablet 1 Tab PO BID 03/13/21 Reported Vitamin D3 (Cholecalciferol (Vitamin D3)) 2,400 Unit/1 Ml Liquid 2,400 Unit MC [id number] 03/13/21 Reported Xarelto (Rivaroxaban) 20 Mg Tablet 1 Tab PO DAILY 30 03/13/21 Reported with food Lipitor (Atorvastatin Calcium) 80 Mg Tablet 1 Tab PO DAILY 03/13/21 Reported Hydrochlorothiazide Capsule (Hydrochlorothiazide) 12.5 Mg Capsule 12.5 Mg PO DAILY 03/13/21 Reported Loratadine 10 Mg Tablet 1 Tab PO DAILY 03/13/21 Reported Lisinopril 40 Mg Tablet 1 Tab PO DAILY 03/13/21 Reported Impression . Chest x-ray reviewed, compatible with viral pneumonia FULL NOTE DICTATED THANKS LIBIA LEE MD Mar 17, 2021 09:22
[2021-03-17] MEDS: hydroCHLOROthiazide 12.5 MG CAPSULE PO SCH (09:50)
[2021-03-17] MEDS: CHOLECALCIFEROL (VITAMIN D3) 1,000 UNIT TABLET PO SCH (09:50)
[2021-03-17] MEDS: ZINC SULFATE 220 MG CAPSULE. PO SCH (09:50)
[2021-03-17] MEDS: guaiFENesin DM 200MG/20MG 10 ML SYRUP PO PRN ×3 (09:50→21:59)
[2021-03-17] MEDS: DEXAMETHASONE SOD PHOS 4 MG/ML VIAL IVP SCH (09:50)
[2021-03-17] MEDS: ACETAMINOPHEN 500 MG TABLET PO PRN (09:51)
[2021-03-17] MEDS: AZITHROMYCIN 250 MG TABLET. PO SCH (09:51)
[2021-03-17] MEDS: SOTALOL 80 MG TABLET. PO SCH ×2 (09:51→21:07)
[2021-03-17] MEDS: LACTOBACILLUS RHAMNOSUS GG 1 CAPSULE. PO SCH ×2 (09:51→21:06)
[2021-03-17] MEDS: CETIRIZINE HCL 10 MG TABLET. PO SCH (09:52)
[2021-03-17] MEDS: ATORVASTATIN CALCIUM 40 MG TABLET. PO SCH (09:52)
[2021-03-17] MEDS: LISINOPRIL 20 MG TABLET PO SCH (09:52)
[2021-03-17] MEDS: RIVAROXABAN 10 MG TABLET. PO SCH (09:52)
[2021-03-17 11:00] VITALS: BP 143/79
--- NOTE | 2021-03-17 13:09 | PDOC ---
[facility] [facility] PROGRESS NOTE Date of Service DOS: DATE: 03/17/21 TIME: 13:07 Chief Complaint Chief Complaint COVID 19 pos with hypoxia acute infectious enteritis, viral SIRS, Sepsis, diarrhea dehydration vasomotor nephropathy, better hyponatremia, dry afib with chronic diastolic CHF, on sotalol, xarelto moderate malnutrition was POA History of Present Illness History of Present Illness still weak today, up to chair Still on oxygen, pos for COVID, day2 of remdesivir, steroid, steroids, zinc, vit c his diarrhea is better labs better, cont current 03/17/2021 No acute events overnight. Patient seen and examined bedside. Saturating 95% on 2 L nasal cannula. Day 3 out of 4 for Remdesivir. In addition to my E/M visit, advance care planning done with A total time of 20 minutes was spent from 930 to 1050 face to face in discussion with the patient and family regarding their goals of care, CODE STATUS. Vitals/I&O Vitals/I&O: Vital Signs Date Time Temp Pulse Resp B/P (MAP) Pulse Ox O2 Delivery O2 Flow Rate FiO2 03/17/21 11:00 98.8 57 20 143/79 (100) 95 Nasal Cannula 2.0 98.8 I & O 03/16/21 03/16/21 03/17/21 15:00 23:00 07:00 Intake Total 1110 ml Balance 1110 ml Physical Exam General: Alert, Oriented X3, Cooperative, mild distress, Other (confused more than baseline) Heart: No murmurs Lungs: Other (rales, limtied vol, ) Abdomen: Soft Extremities: No clubbing, Normal pulses Skin: No rashes, No breakdown Labs Labs: Laboratory Tests Test 03/17/21 05:45 White Blood Count 9.8 x10^3/uL (4.0-11.0) Red Blood Count 3.90 x10^6/uL (4.30-5.70) Hemoglobin 11.6 g/dL (13.0-17.5) Hematocrit 33.4 % (39.0-53.0) Mean Corpuscular Volume 86 fL (79-100) Mean Corpuscular Hemoglobin 30 pg (25-35) Mean Corpuscular Hemoglobin Concent 35 g/dL (31-37) Red Cell Distribution Width 14.0 % (11.5-14.5) Platelet Count 381 x10^3/uL (140-400) Neutrophils (%) (Auto) 74 % (31-73) Lymphocytes (%) (Auto) 14 % (24-48) Monocytes (%) (Auto) 11 % (0-9) Eosinophils (%) (Auto) 0 % (0-3) Basophils (%) (Auto) 0 % (0-3) Neutrophils # (Auto) 7.2 x10^3/uL (1.8-7.7) Lymphocytes # (Auto) 1.4 x10^3/uL (1.0-4.8) Monocytes # (Auto) 1.1 x10^3/uL (0.0-1.1) Eosinophils # (Auto) 0.0 x10^3/uL (0.0-0.7) Basophils # (Auto) 0.0 x10^3/uL (0.0-0.2) Sodium Level 138 mmol/L (136-145) Potassium Level 3.8 mmol/L (3.5-5.1) Chloride Level 103 mmol/L (98-107) Carbon Dioxide Level 28 mmol/L (21-32) Anion Gap 7 (6-14) Blood Urea Nitrogen 24 mg/dL (8-26) Creatinine 1.0 mg/dL (0.7-1.3) Estimated GFR (Cockcroft-Gault) 74.1 BUN/Creatinine Ratio 24 (6-20) Glucose Level 151 mg/dL (70-99) Calcium Level 8.3 mg/dL (8.5-10.1) Total Bilirubin 0.5 mg/dL (0.2-1.0) Aspartate Amino Transf (AST/SGOT) 82 U/L (15-37) Alanine Aminotransferase (ALT/SGPT) 100 U/L (16-63) Alkaline Phosphatase 64 U/L (46-116) Total Protein 6.0 g/dL (6.4-8.2) Albumin 2.1 g/dL (3.4-5.0) Albumin/Globulin Ratio 0.5 (1.0-1.7) Assessment and Plan Assessmemt and Plan Problems Medical Problems: (1) Atypical pneumonia Status: Acute (2) Respiratory failure with hypoxia Status: Acute Comment Review of Relevant I have reviewed the following items janice (where applicable) has been applied. Medications: Current Medications Medications (Trade) Dose Ordered Sig/Stone Route PRN Reason Start Time Stop Time Status Last Admin Dose Admin Remdesivir 100 mg/ Sodium Chloride 230 ml @ 460 mls/hr Q24H IV 03/16/21 16:00 03/19/21 16:29 03/16/21 16:00 Justifications for Admission Other Justification JEANNE SANTIAGO MD Mar 17, 2021 13:09
--- NOTE | 2021-03-17 13:22 | CONS ---
DATE OF CONSULTATION: 03/17/2021 ATTENDING PHYSICIAN: Radha Bowen MD REASON FOR CONSULTATION: The patient is seen in Pulmonary consultation at the request of Dr. Bowen for hypoxemia, abnormal x-ray, COVID positive. HISTORY OF PRESENT ILLNESS: The patient is a 70-year-old who was not feeling well over the last several days with mainly decreased appetite, diarrhea, and some fever. He was reportedly exposed to his son who had COVID 2 weeks ago. The patient presented with the above symptoms. He had an arterial blood gas on room air, revealing a paO2 of 58. He had a chest x-ray, which I personally reviewed, revealing bilateral patchy type of infiltrates. He was admitted. I was asked to see him in consultation. He did test positive for SARS-CoV-2. He is currently on 4 liters of oxygen. He states that he had a rough night last night. He has been here for several days. Initially when he came in, he had a fever of 102.8. He has been treated with steroids, remdesivir, nebulized treatments. PAST MEDICAL HISTORY: Otherwise remarkable for: 1. AFib. 2. Hypertension. PAST SURGICAL HISTORY: None. FAMILY HISTORY: Diabetes, heart disease. Son with COVID-19. SOCIAL HISTORY: He has never smoked. He is currently retired. REVIEW OF SYSTEMS: As indicated above. Otherwise, a 10-point system was reviewed and negative. CURRENT MEDICATIONS: List was reviewed. He is on remdesivir. He is also receiving nebulized treatments and dexamethasone. PHYSICAL EXAMINATION: VITAL SIGNS: Stable. O2 saturation was greater than 92%, currently on 2 liters. GENERAL: The patient was not physically examined secondary to COVID-19 viral pneumonia during the pandemic. On visual inspection, he was awake, alert, following commands. Able to complete full sentences. No paroxysmal breathing pattern. SKIN: No skin rashes. EXTREMITIES: No edema. Labs and chest x-ray reviewed as indicated above. IMPRESSION: 1. Acute hypoxemic respiratory failure secondary to COVID-19 viral pneumonia. 2. COVID-19 viral pneumonia. 3. Abnormal x-ray, compatible with viral pneumonia. 4. Atrial fibrillation. 5. Hypertension. PLAN: 1. Continue course of remdesivir and dexamethasone. 2. Oxygen supplementation. 3. Albuterol metered dose inhaler p.r.n. 4. Continue home medications. 5. The patient chronically on Xarelto for his AFib. I do appreciate the privilege in sharing in this patient's care. RIAN DR: Bridger TID: [id number]
[2021-03-17] MEDS: ASCORBIC ACID 500 MG TABLET PO SCH (14:18)
[2021-03-17 14:51] VITALS: BP 123/67
[2021-03-17] MEDS: REMDESIVIR 100mg in NORMAL SALINE 250ML X 4 DAYS IV SCH (16:08)
[2021-03-17 19:00] VITALS: BP 140/75
[2021-03-17 23:00] VITALS: BP 114/73
[2021-03-18 03:00] VITALS: BP 120/67
[2021-03-18 07:30] VITALS: BP 131/57
[2021-03-18] MEDS: guaiFENesin DM 200MG/20MG 10 ML SYRUP PO PRN ×2 (08:05→21:09)
[2021-03-18] MEDS: ATORVASTATIN CALCIUM 40 MG TABLET. PO SCH (08:06)
[2021-03-18] MEDS: CETIRIZINE HCL 10 MG TABLET. PO SCH (08:06)
[2021-03-18] MEDS: hydroCHLOROthiazide 12.5 MG CAPSULE PO SCH (08:06)
[2021-03-18] MEDS: RIVAROXABAN 10 MG TABLET. PO SCH (08:06)
[2021-03-18] MEDS: LACTOBACILLUS RHAMNOSUS GG 1 CAPSULE. PO SCH ×2 (08:06→21:09)
[2021-03-18] MEDS: SOTALOL 80 MG TABLET. PO SCH ×2 (08:06→21:09)
[2021-03-18] MEDS: CHOLECALCIFEROL (VITAMIN D3) 1,000 UNIT TABLET PO SCH (08:07)
[2021-03-18] MEDS: LISINOPRIL 20 MG TABLET PO SCH (08:07)
[2021-03-18] MEDS: ZINC SULFATE 220 MG CAPSULE. PO SCH (08:07)
[2021-03-18] MEDS: ASCORBIC ACID 500 MG TABLET PO SCH (08:07)
[2021-03-18] MEDS: DEXAMETHASONE SOD PHOS 4 MG/ML VIAL IVP SCH (08:08)
[2021-03-18] MEDS: IV NORMAL SALINE 1000ML BAG 1,000 ML IV SCH ×2 (08:10→20:21)
--- NOTE | 2021-03-18 09:57 | PDOC ---
[facility] [facility] PROGRESS NOTE Date of Service DOS: DATE: 03/18/21 TIME: 09:55 Chief Complaint Chief Complaint COVID 19 pos with hypoxia acute infectious enteritis, viral SIRS, Sepsis, diarrhea dehydration vasomotor nephropathy, better hyponatremia, dry afib with chronic diastolic CHF, on sotalol, xarelto moderate malnutrition was POA History of Present Illness History of Present Illness still weak today, up to chair Still on oxygen, pos for COVID, day2 of remdesivir, steroid, steroids, zinc, vit c his diarrhea is better labs better, cont current 03/17/2021 No acute events overnight. Patient seen and examined bedside. Saturating 95% on 2 L nasal cannula. Day 3 out of 4 for Remdesivir. In addition to my E/M visit, advance care planning done with A total time of 20 minutes was spent from 930 to 1050 face to face in discussion with the patient and family regarding their goals of care, CODE STATUS. 03/18/2021 No acute events overnight. Patient seen and examined ambulating towards the toilet. No complaints at this time. Saturating 96% on 2 L nasal cannula. Anticipate discharge in the next 24 hours and 6-minute walk test before di scharge. Patient's chart, labs, images were reviewed and discussed with RN Vitals/I&O Vitals/I&O: Vital Signs Date Time Temp Pulse Resp B/P (MAP) Pulse Ox O2 Delivery O2 Flow Rate FiO2 03/18/21 08:07 87 131/57 03/18/21 07:30 98.7 18 96 Nasal Cannula 2.0 98.7 I & O 03/17/21 03/17/21 03/18/21 15:00 23:00 07:00 Intake Total 200 ml 320 ml 120 ml Balance 200 ml 320 ml 120 ml Physical Exam General: Alert, Oriented X3, Cooperative, mild distress, Other (confused more than baseline) Heart: No murmurs Lungs: Other (rales, limtied vol, ) Abdomen: Soft Extremities: No clubbing, Normal pulses Skin: No rashes, No breakdown Assessment and Plan Assessmemt and Plan Problems Medical Problems: (1) Atypical pneumonia Status: Acute (2) Respiratory failure with hypoxia Status: Acute Comment Review of Relevant I have reviewed the following items janice (where applicable) has been applied. Justifications for Admission Other Justification JEANNE SANTIAGO MD Mar 18, 2021 09:57
[2021-03-18 11:22] VITALS: BP 134/65
--- NOTE | 2021-03-18 12:16 | PDOC ---
PULMONARY PROGRESS NOTES DATE: 03/18/21 TIME: 12:13 Subjective Pt. resting on 2 liters NC no overnight issues no increase cough or SOA Vitals Vital Signs Date Time Temp Pulse Resp B/P (MAP) Pulse Ox O2 Delivery O2 Flow Rate FiO2 03/18/21 08:07 87 131/57 03/18/21 07:30 98.7 18 96 Nasal Cannula 2.0 98.7 Comments Pt. seen during id - pandemic visual exam preformed Afib no distress on NC o2 no obvious rash or edema Lungs: Other (rales, limtied vol, ) Labs Laboratory Tests Test 03/17/21 05:45 White Blood Count 9.8 x10^3/uL (4.0-11.0) Red Blood Count 3.90 x10^6/uL (4.30-5.70) Hemoglobin 11.6 g/dL (13.0-17.5) Hematocrit 33.4 % (39.0-53.0) Mean Corpuscular Volume 86 fL (79-100) Mean Corpuscular Hemoglobin 30 pg (25-35) Mean Corpuscular Hemoglobin Concent 35 g/dL (31-37) Red Cell Distribution Width 14.0 % (11.5-14.5) Platelet Count 381 x10^3/uL (140-400) Neutrophils (%) (Auto) 74 % (31-73) Lymphocytes (%) (Auto) 14 % (24-48) Monocytes (%) (Auto) 11 % (0-9) Eosinophils (%) (Auto) 0 % (0-3) Basophils (%) (Auto) 0 % (0-3) Neutrophils # (Auto) 7.2 x10^3/uL (1.8-7.7) Lymphocytes # (Auto) 1.4 x10^3/uL (1.0-4.8) Monocytes # (Auto) 1.1 x10^3/uL (0.0-1.1) Eosinophils # (Auto) 0.0 x10^3/uL (0.0-0.7) Basophils # (Auto) 0.0 x10^3/uL (0.0-0.2) Sodium Level 138 mmol/L (136-145) Potassium Level 3.8 mmol/L (3.5-5.1) Chloride Level 103 mmol/L (98-107) Carbon Dioxide Level 28 mmol/L (21-32) Anion Gap 7 (6-14) Blood Urea Nitrogen 24 mg/dL (8-26) Creatinine 1.0 mg/dL (0.7-1.3) Estimated GFR (Cockcroft-Gault) 74.1 BUN/Creatinine Ratio 24 (6-20) Glucose Level 151 mg/dL (70-99) Calcium Level 8.3 mg/dL (8.5-10.1) Total Bilirubin 0.5 mg/dL (0.2-1.0) Aspartate Amino Transf (AST/SGOT) 82 U/L (15-37) Alanine Aminotransferase (ALT/SGPT) 100 U/L (16-63) Alkaline Phosphatase 64 U/L (46-116) Total Protein 6.0 g/dL (6.4-8.2) Albumin 2.1 g/dL (3.4-5.0) Albumin/Globulin Ratio 0.5 (1.0-1.7) Medications Active Scripts Medications Dose Route/Sig Max Daily Dose Days Date Category Dose Instructions Ondansetron Hcl 4 Mg Tablet 1 Tab PO PRN Q6HRS 03/13/21 Reported Morphine Sulfate 2 Mg/1 Ml Cartridge 2 Mg IV PRN Q4HRS PRN 03/13/21 Reported Sotalol (Sotalol Hcl) 80 Mg Tablet 1 Tab PO BID 03/13/21 Reported Vitamin D3 (Cholecalciferol (Vitamin D3)) 2,400 Unit/1 Ml Liquid 2,400 Unit MC [id number] 03/13/21 Reported Xarelto (Rivaroxaban) 20 Mg Tablet 1 Tab PO DAILY 30 03/13/21 Reported with food Lipitor (Atorvastatin Calcium) 80 Mg Tablet 1 Tab PO DAILY 03/13/21 Reported Hydrochlorothiazide Capsule (Hydrochlorothiazide) 12.5 Mg Capsule 12.5 Mg PO DAILY 03/13/21 Reported Loratadine 10 Mg Tablet 1 Tab PO DAILY 03/13/21 Reported Lisinopril 40 Mg Tablet 1 Tab PO DAILY 03/13/21 Reported Impression . IMPRESSION: 1. Acute hypoxemic respiratory failure secondary to COVID-19 viral pneumonia. 2. COVID-19 viral pneumonia. 3. Abnormal x-ray, compatible with viral pneumonia. 4. Atrial fibrillation. 5. Hypertension. Plan . Updated 03/18/21 Continue supplemental oxygen to keep sats above 92%, on 2 liters NC 6 min walk before discharge Continue steroids Continue Remdesivir DVT/GI PPX:xarellto Possible to DC in am once completion of 6 min walk PLAN: 03/17/21 1. Continue course of remdesivir and dexamethasone. 2. Oxygen supplementation. 3. Albuterol metered dose inhaler p.r.n. 4. Continue home medications. 5. The patient chronically on Xarelto for his AFib. LIBIA LEE MD Mar 18, 2021 12:16
[2021-03-18 15:00] VITALS: BP 142/78
[2021-03-18] MEDS: REMDESIVIR 100mg in NORMAL SALINE 250ML X 4 DAYS IV SCH (17:52)
[2021-03-18 19:00] VITALS: BP 143/73
[2021-03-18 23:00] VITALS: BP 141/63
[2021-03-19] MEDS: MORPHINE SULFATE 2 MG/ML INJ. IVP PRN (02:19)
[2021-03-19 03:00] VITALS: BP 141/63
[2021-03-19 07:00] VITALS: BP 153/81
[2021-03-19] MEDS: IV NORMAL SALINE 1000ML BAG 1,000 ML IV SCH (08:30)
[2021-03-19] MEDS: LISINOPRIL 20 MG TABLET PO SCH (09:04)
[2021-03-19] MEDS: ASCORBIC ACID 500 MG TABLET PO SCH (09:04)
[2021-03-19] MEDS: RIVAROXABAN 10 MG TABLET. PO SCH (09:05)
[2021-03-19] MEDS: CETIRIZINE HCL 10 MG TABLET. PO SCH (09:05)
[2021-03-19] MEDS: LACTOBACILLUS RHAMNOSUS GG 1 CAPSULE. PO SCH (09:05)
[2021-03-19] MEDS: SOTALOL 80 MG TABLET. PO SCH (09:05)
[2021-03-19] MEDS: hydroCHLOROthiazide 12.5 MG CAPSULE PO SCH (09:05)
[2021-03-19] MEDS: ZINC SULFATE 220 MG CAPSULE. PO SCH (09:05)
[2021-03-19] MEDS: CHOLECALCIFEROL (VITAMIN D3) 1,000 UNIT TABLET PO SCH (09:05)
[2021-03-19] MEDS: DEXAMETHASONE SOD PHOS 4 MG/ML VIAL IVP SCH (09:06)
--- NOTE | 2021-03-19 09:11 | PDOC ---
PULMONARY PROGRESS NOTES DATE: 03/19/21 TIME: 09:11 Subjective now on room air no overnight issues no increase cough or SOA, wanting to go home today Vitals Vital Signs Date Time Temp Pulse Resp B/P (MAP) Pulse Ox O2 Delivery O2 Flow Rate FiO2 03/19/21 09:05 65 153/81 03/19/21 07:00 99.2 22 92 Room Air 99.2 03/19/21 03:01 2.0 Comments Pt. seen during covid -19 pandemic visual exam preformed Afib no distress on NC o2 no obvious rash or edema Lungs: Other (rales, limtied vol, ) Medications Active Scripts Medications Dose Route/Sig Max Daily Dose Days Date Category Dose Instructions Ondansetron Hcl 4 Mg Tablet 1 Tab PO PRN Q6HRS 03/13/21 Reported Morphine Sulfate 2 Mg/1 Ml Cartridge 2 Mg IV PRN Q4HRS PRN 03/13/21 Reported Sotalol (Sotalol Hcl) 80 Mg Tablet 1 Tab PO BID 03/13/21 Reported Vitamin D3 (Cholecalciferol (Vitamin D3)) 2,400 Unit/1 Ml Liquid 2,400 Unit MC [id number] 03/13/21 Reported Xarelto (Rivaroxaban) 20 Mg Tablet 1 Tab PO DAILY 30 03/13/21 Reported with food Lipitor (Atorvastatin Calcium) 80 Mg Tablet 1 Tab PO DAILY 03/13/21 Reported Hydrochlorothiazide Capsule (Hydrochlorothiazide) 12.5 Mg Capsule 12.5 Mg PO DAILY 03/13/21 Reported Loratadine 10 Mg Tablet 1 Tab PO DAILY 03/13/21 Reported Lisinopril 40 Mg Tablet 1 Tab PO DAILY 03/13/21 Reported Impression . IMPRESSION: 1. Acute hypoxemic respiratory failure secondary to COVID-19 viral pneumonia.--resolved 2. COVID-19 viral pneumonia. 3. Abnormal x-ray, compatible with viral pneumonia. 4. Atrial fibrillation. 5. Hypertension. Plan . Updated 03/19/21 Continue supplemental oxygen to keep sats above 92%, now on room air 6 min walk before discharge Continue steroids for full 10 day course with slow taper started 03/15/21 Continue Remdesivir DVT/GI PPX:feliz hitchcock to dc from our stand point D/W RN Updated 03/18/21 Continue supplemental oxygen to keep sats above 92%, on 2 liters NC 6 min walk before discharge Continue steroids Continue Remdesivir DVT/GI PPX:xarellto Possible to DC in am once completion of 6 min walk PLAN: 03/17/21 1. Continue course of remdesivir and dexamethasone. 2. Oxygen supplementation. 3. Albuterol metered dose inhaler p.r.n. 4. Continue home medications. 5. The patient chronically on Xarelto for his AFib. LIBIA LEE MD Mar 19, 2021 09:11
[2021-03-19 11:11] VITALS: BP 141/72
--- NOTE | 2021-03-19 12:59 | PDOC ---
[employer] PROGRESS NOTE Date of Service DOS: DATE: 03/19/21 TIME: 12:55 Chief Complaint Chief Complaint COVID 19 pos with hypoxia acute infectious enteritis, viral SIRS, Sepsis, diarrhea dehydration vasomotor nephropathy, better hyponatremia, dry afib with chronic diastolic CHF, on sotalol, xarelto moderate malnutrition was POA History of Present Illness History of Present Illness still weak today, up to chair Still on oxygen, pos for COVID, day2 of remdesivir, steroid, steroids, zinc, vit c his diarrhea is better labs better, cont current 03/17/2021 No acute events overnight. Patient seen and examined bedside. Saturating 95% on 2 L nasal cannula. Day 3 out of 4 for Remdesivir. In addition to my E/M visit, advance care planning done with A total time of 20 minutes was spent from 930 to 1050 face to face in discussion with the patient and family regarding their goals of care, CODE STATUS. 03/18/2021 No acute events overnight. Patient seen and examined ambulating towards the toilet. No complaints at this time. Saturating 96% on 2 L nasal cannula. Anticipate discharge in the next 24 hours and 6-minute walk test before di scharge. Patient's chart, labs, images were reviewed and discussed with RN 03/19/2021: Patient afebrile, currently breathing on room air. Had 6-minute walk and did not require any oxygen with exertion. Plan to discharge patient home today. Greater than 30 minutes spent managing discharge this patient. Vitals/I&O Vitals/I&O: Vital Signs Date Time Temp Pulse Resp B/P (MAP) Pulse Ox O2 Delivery O2 Flow Rate FiO2 03/19/21 11:11 98.4 59 20 141/72 (95) 92 Room Air 98.4 03/19/21 03:01 2.0 I & O 03/18/21 03/18/21 03/19/21 15:00 23:00 07:00 Intake Total 120 ml 120 ml Output Total 650 ml 350 ml Balance -650 ml -230 ml 120 ml Physical Exam General: Alert, Oriented X3, Cooperative, No acute distress, Other (confused more than baseline) Heart: No murmurs Lungs: Other (rales, limtied vol, ) Abdomen: Soft Extremities: No clubbing, Normal pulses Skin: No rashes, No breakdown Assessment and Plan Assessmemt and Plan Problems Medical Problems: (1) Atypical pneumonia Status: Acute (2) Respiratory failure with hypoxia Status: Acute Comment Review of Relevant I have reviewed the following items janice (where applicable) has been applied. Justifications for Admission Other Justification SUSAN SHEA MD Mar 19, 2021 12:59
[2021-03-19] MEDS: ATORVASTATIN CALCIUM 40 MG TABLET. PO SCH (14:32)
--- NOTE | 2021-03-19 14:57 | PDOC3 ---
Discharge Summary Visit Information Date of Admission: Mar 14, 2021 Date of Discharge: Mar 19, 2021 Final Diagnosis Problems Medical Problems: (1) Atypical pneumonia Status: Acute (2) Respiratory failure with hypoxia Status: Acute Brief Hospital Course Allergies Allergies Coded Allergies Type Severity Reaction Last Updated Verified amoxicillin Allergy Intermediate 03/13/21 Yes clavulanic acid Allergy Intermediate 03/13/21 Yes Vital Signs Vital Signs Date Time Temp Pulse Resp B/P (MAP) Pulse Ox O2 Delivery O2 Flow Rate FiO2 03/19/21 11:11 98.4 59 20 141/72 (95) 92 Room Air 98.4 03/19/21 03:01 2.0 Brief Hospital Course Mr. Paige is a 70 old male who presented with acute respiratory failure with hypoxia, COVID-19 pneumonia. Consultation placed to pulmonology. He was treated with remdesivir, prophylactic antibiotics, steroids, and supportive care. His oxygen was weaned to room air. Had 6-minute walk and did not require any oxygen at rest or with exertion. Will discharge patient home with self-care with instructions to self isolate for duration of 10 days. Discharge Information Condition at Discharge: Improved Follow Up: Weeks Disposition/Orders: D/C to Home Scheduled Atorvastatin Calcium (Lipitor) 80 Mg Tablet, 1 TAB PO DAILY for HLD, #30 Ref 5 (Reported) Entered as Reported by: ECHO NOVAK on 03/13/212256 Last Taken: Unknown Dose on 03/13/21899 Last Action: Converted on 03/13/212301 by ECHO NOVAK Cholecalciferol (Vitamin D3) (Vitamin D3) 2,400 Unit/1 Ml Liquid, 2,400 UNIT MC DAILY08 for replacement, (Reported) Entered as Reported by: ECHO NOVAK on 03/13/212256 Last Taken: Unknown Dose on 03/13/21 08 Last Action: Converted on 03/13/212301 by ECHO NOVAK Hydrochlorothiazide (Hydrochlorothiazide Capsule ) 12.5 Mg Capsule, 12.5 MG PO DAILY for DIURETIC, Ref 0 (Reported) Entered as Reported by: ECHO NOVAK on 03/13/212256 Last Taken: Unknown Dose on 03/13/21 09 Last Action: Continued on 03/13/212301 by ECHO NOVAK Lisinopril (Lisinopril) 40 Mg Tablet, 1 TAB PO DAILY for HTN, #30 Ref 5 (Reported) Entered as Reported by: ECHO NOVAK on 03/13/212256 Last Taken: Unknown Dose on 03/13/21899 Last Action: Continued on 03/13/212301 by ECHO NOVAK Loratadine (Loratadine) 10 Mg Tablet, 1 TAB PO DAILY for allergies, #30 Ref 5 (Reported) Entered as Reported by: ECHO NOVAK on 03/13/212256 Last Taken: Unknown Dose on 03/13/21899 Last Action: Converted on 02/16 by ECHO NOVAK Ondansetron Hcl (Ondansetron Hcl) 4 Mg Tablet, 1 TAB PO PRN Q6HRS for nausea, #1 0 Ref 1 (Reported) Entered as Reported by: ECHO NOVAK on 03/13/212301 Last Taken: Unknown Dose on Unknown Date & Time Last Action: New Order on 03/13/212301 by ECHO NOVAK Rivaroxaban (Xarelto) 20 Mg Tablet, 1 TAB PO DAILY for Afib for 30 Days, #30 Ref 0 (Reported) with food Entered as Reported by: ECHO NOVAK on 03/13/212256 Last Taken: Unknown Dose on 03/13/21899 Last Action: Converted on 03/13/212301 by ECHO NOVAK Sotalol Hcl (Sotalol) 80 Mg Tablet, 1 TAB PO BID for cardiac arrthymia, #60 Ref 5 (Reported) Entered as Reported by: ECHO NOVAK on 03/13/212256 Last Taken: Unknown Dose on 03/13/21899 Last Action: Continued on 03/13/212301 by ECHO NOVAK Scheduled PRN Morphine Sulfate (Morphine Sulfate) 2 Mg/1 Ml Cartridge, 2 MG IV PRN Q4HRS PRN for PAIN, (Reported) Entered as Reported by: ECHO NOVAK on 03/13/212301 Last Taken: Unknown Dose on Unknown Date & Time Last Action: New Order on 03/13/212301 by ECHO NOVAK Justicifation of Admission Dx: Justifications for Admission: Justification of Admission Dx: Yes SUSAN SHEA MD Mar 19, 2021 14:57
[2021-03-19 15:19] VITALS: BP 69/72
--- NOTE | 2021-03-19 16:20 | NUR ---
DISCHARGE INSTRUCTIONS GIVEN, QUESTIONS AND CONCERNS ANSWERED, PATIENT VERBALIZED UNDERSTANDING OF DISCHARGE INFORMATION INCLUDING TAKING ALL MEDICATIONS INSTRUCTED AND FOLLOWING UP WITH HIS PRIMARY PROVIDER IN 1-2 WEEKS.
== END 2021-03-19 16:25 | disposition home or self-care (01) | DRG 871 ==
LOC: ER 12:23 → 6 SOUTH 19:22 → 5 NORTH 03-15 09:40
PROVIDERS: ADMIT Internal Medicine; ATTEND Internal Medicine
PROC: XW033E5 Introduction of Remdesivir Anti-infective into Peripheral Vein, Percutaneous Approach, New Technology Group 5 (ICD-10-PCS; principal; 2021-03-13)
DX: A41.89 Other specified sepsis (principal); N17.0 Acute kidney failure with tubular necrosis; U07.1 COVID-19; J12.82 Pneumonia due to coronavirus disease 2019; J96.01 Acute respiratory failure with hypoxia; E44.0 Moderate protein-calorie malnutrition; E87.1 Hypo-osmolality and hyponatremia; I50.32 Chronic diastolic (congestive) heart failure; E86.0 Dehydration; G47.30 Sleep apnea, unspecified; I11.0 Hypertensive heart disease with heart failure; I48.91 Unspecified atrial fibrillation; Z83.3 Family history of diabetes mellitus; Z88.8 Allergy status to other drugs, medicaments and biological substances; Z68.32 Body mass index [BMI] 32.0-32.9, adult; A08.4 Viral intestinal infection, unspecified
CPT/HCPCS: 36415; 36600; 71045; 80048; 80053; 81001; 82805; 83735; 85007; 85025; 87426; 94618; 96374; J0456; J0696; J1100; J2270; J7030; J7050; U0003; U0005; 99285-25; G0378